=== PATIENT | female | born 1945 | race Caucasian/White ===

== ENCOUNTER 2017-10-25 02:44 | Inpatient (IN) | payer OTHER, MEDICARE ==
[~2017-10-25] VITALS: Ht 157.5 cm; Wt 66.9 kg
[~2017-10-25 02:44] MED LIST: ASPIRIN EC81 M1 PO; CRANBERRY-PROB1 EACH PO; FISH OIL 11600 MG/5 PO; LEVOTHYROXINE75 MCG PO; LIPITOR10 M1 PO; LOTREL 5-20 MG1 EACH PO; MULTIVITAMINS1 EAC9 PO; VITAMIN C1000 M4 PO; VITAMIN D5000 UNIT PO
--- NOTE | 2017-10-25 11:12 | Admission Core Measures ---
Acute Coronary Syndrome (CM) ACS Core Measures Acute Coronary Syndrome Diagnosis No Congestive Heart Failure (NEW) CHF Core Measures Congestive Heart Failure Diagnosis No Cerebrovascular Accident (NEW) CVA Core Measures CVA/TIA Diagnosis No Venous Thromboembolism VTE Core Mt (View Protocol) VTE Risk Factors Surgery No Mechanical VTE Prophylaxis d/t N/A MechProphylax Ordered No VTE Pharm Prophylaxis d/t NA PharmProphylax ordered Problem List As ranked by this Provider includes Assessment & Plan 1. Unilateral primary osteoarthritis, right hip HOME MEDS Home Med List Amlodipine Besylate/Benazepril (Lotrel 5-20 MG Capsule) 5 MG-20 MG CAPSULE 1 CAP PO DAILY BP (Reported) Ascorbic Acid (Vitamin C) 1,000 MG TABLET 1 TAB PO DAILY SUPPLEMENT (Reported ) Aspirin (Ecotrin*) 81 MG TABLET.DR 1 TAB PO DAILY HEART/BLOOD (Reported) Atorvastatin Calcium (Lipitor) 10 MG TABLET 1 TAB PO DAILY CHOLESTEROL ( Reported) Cholecalciferol (Vitamin D3) (Vitamin D) 5,000 UNIT TABLET 1 TAB PO DAILY SUPPLEMENT (Reported) Cranberry Con&Fr/B.coag/C/Calc (Cranberry-Probiotic Tablet) (Unknown Strength) TABLET (Unknown Dose) PO DAILY SUPPLEMENT (Reported) Levothyroxine Sodium 75 MCG TABLET 1 TAB PO DAILY AC HASHIMOTOS (Reported) Multiple Vitamin (Multivitamins) 1 EACH TABLET 1 TAB PO DAILY SUPPLEMENT ( Reported) [place]-3/Dha/Epa/Fish Oil (Fish Oil 1,600 MG/5 Ml Liquid) (Unknown Strength) LIQUID (Unknown Dose) PO DAILY SUPPLEMENT (Reported)
[2017-10-25] MEDS ORDERED: DILAUDID2 M1 PO (11:14)
[2017-10-25] MEDS ORDERED: MIRALAX17 G1 PO (11:14)
[2017-10-25] MEDS ORDERED: COLACE100 M1 PO (11:14)
[2017-10-25] MEDS ORDERED: PRILOSEC OTC20 M1 PO (11:14)
[2017-10-25] MEDS ORDERED: ASPIRIN EC325 M2 PO (11:14)
--- NOTE | 2017-10-25 11:18 | Patient Discharge Instructions ---
Discharge Instructions General Discharge Information You were seen/treated for: Right hip pain related to unilateral primary osteoarthritis You had these procedures: Right total hip replacement Watch for these problems: Increasing pain despite the use of pain medication Increasing redness, warmth or swelling Drainage of any type from incision Inability to bear weight on operative leg Persistent nausea and vomiting Fever greater than 101.5 degrees Do not soak the wound: Yes No bath, but you may shower: Yes Other wound care: Please keep wound clean and dry. No ointments or lotions of any type on or near incision at any time. No exceptions. Your dressing will be changed by your nurse on the second day after your surgery. Daily dry dressing changes are recommended each day thereafter. Do not soak your wound in a bath at any time until otherwise indicated by your surgeon. You may shower, please dry wound immediately after shower with a clean towel. Special Instructions: Aspirin: You are taking this medication to help prevent blood clot formation. Please take with food to protect your stomach lining. Please take as directed. Constipation: Pain medication can cause constipation. Dr. Turpin has recommended that you take Colace and miralax each day. You may discontinue this medication if you develop loose stool or diarrhea. If you wish to continue this medication, it is available over the counter. If you are unable to move your bowels after several days, if you are unable to pass gas and are developing bloating, nausea, or vomiting as a result, please contact your doctor. Diet Continue normal diet: Yes Recommended Diet: Regular Activity Full Activity/No Limits: No Activity Self Limited: Yes Pounds, do NOT lift more than: 10 Acute Coronary Syndrome Inclusion Criteria At DC or during hospital stay patient has or had the following: ACS DIAGNOSIS No Discharge Core Measures Meds if any: Prescribed or Continued at Discharge Meds if any: NOT Prescribed or Continued at Discharge Congestive Heart Failure Inclusion Criteria At DC or during hospital stay patient has or had the following: CHF DIAGNOSIS No Discharge Core Measures Meds if any: Prescribed or Continued at Discharge Meds if any: NOT Prescribed or Continued at Discharge Cerebrovascular accident Inclusion Criteria At DC or during hospital stay patient has or had the following: CVA/TIA Diagnosis No Discharge Core Measures Meds if any: Prescribed or Continued at Discharge Meds if any: NOT Prescribed or Continued at Discharge Venous thromboembolism Inclusion Criteria VTE Diagnosis No VTE Type NONE VTE Confirmed by (Test) NONE Discharge Core Measures - Per Current guidelines, there needs to be overlap - treatment for the first 5 days of Warfarin therapy. - If discharged on Warfarin prior to 5 days of - overlap therapy, the patient will need to be - assessed for post discharge needs including - *Post discharge parental anticoagulation - *Warfarin and/or parental anticoagulation education - *Follow up date to check INR post discharge At least 5 days overlap therapy as Inpatient No Meds if any: Prescribed or Continued at Discharge Note: Overlap Therapy is Warfarin and Anticoagulant Meds if any: NOT Prescribed or Continued at Discharge
--- NOTE | 2017-10-25 11:20 | Surgical Discharge Summary ---
Visit Information Visit Dates Admission Date: 10/25/17 Discharge Date: 10/26/17 History of Present Illness Chief Complaint: Right hip unilateral primary osteoarthritis Surgical History Pertinent Surgical History: non-contributory Review of Systems: See H&P Hospital Course Course Attending Physician: Jose J Turpin MD Primary Care Physician: Chandler OROZCO,[facility] Course: Patient was admitted to the hospital for an elective total joint replacement. The procedure was tolerated well and patient was transferred to a general surgical floor. Diet was advanced and tolerated, and the patient voided spontaneously. The patient was evaluated and treated by physical therapy. At the time of hospital discharge, the vital signs were stable, neurovascular status was intact, and pain was controlled with the use of oral pain medications. Allergies: Coded Allergies: Penicillins ([facility] 10/21/17) Sulfa (Sulfonamide Antibiotics) ([facility] 10/21/17) adhesive tape (PAIN AND BURNING FROM TAPE UNK KIND - BAND AIDES ARE OKAY ) codeine ([facility] 10/21/17) latex (DRYNESS AND BURNING ORALLY WHEN GLOVES USED IN DENTAL WORK 10/21/17) meloxicam (GASTRITIS 10/21/17) shellfish derived ([facility] 10/21/17) Disposition Summary Disposition Principal Diagnosis: Unilateral primary osteaorthritis right hip Additional Diagnosis: None Discharge Disposition: home health services Discharge Instructions General Discharge Information Code Status: Full Code Patient's Diet: Regular, advance as tolerated Patient's Activity: WBAT Follow-Up Instructions/Appts: Follow up with Dr. Turpin in 6 weeks from date of surgery. Please call his office to arrange and/or confirm this appointment. Medications at Discharge Discharge Medications: Stop taking the following medications: Aspirin (Ecotrin*) 81 MG TABLET. ORAL DAILY Continue taking these medications: Levothyroxine Sodium (Levothyroxine Sodium) 75 MCG TABLET 1 Tablet ORAL DAILY BEFORE BREAKFAST Comments: Last Taken: 10/26/17 Time: 530 AM Amlodipine Besylate/Benazepril (Lotrel 5-20 MG Capsule) 5 MG-20 MG CAPSULE 1 Capsule ORAL DAILY Comments: Last Taken: 10/26/17 Time: 845 AM Atorvastatin Calcium (Lipitor) 10 MG TABLET 1 Tablet ORAL DAILY Comments: Last Taken: 10/25/17 Time: 445 PM Multiple Vitamin (Multivitamins) 1 EACH TABLET 1 Tablet ORAL DAILY Comments: Last Taken: 10/26/17 Time: 845 AM Cholecalciferol (Vitamin D3) (Vitamin D) 5,000 UNIT TABLET 1 Tablet ORAL DAILY Comments: NOT GIVEN IN THE HOSPITAL Ascorbic Acid (Vitamin C) 1,000 MG TABLET 1 Tablet ORAL DAILY Comments: NOT GIVEN IN THE HOSPITAL Cranberry Con&Fr/B.coag/C/Calc (Cranberry-Probiotic Tablet) (Unknown Strength) TABLET Unknown Dose ORAL DAILY Comments: NOT GIVEN IN THE HOSPITAL [place]-3/Dha/Epa/Fish Oil (Fish Oil 1,600 MG/5 Ml Liquid) (Unknown Strength) LIQUID Unknown Dose ORAL DAILY Comments: NOT GIVEN IN THE HOSPITAL Start taking the following new medications: Hydromorphone HCl (Dilaudid) 2 MG TABLET 1-2 Tablet ORAL EVERY 4-6 HOURS NEEDED as needed for PAIN Qty = 36 No Refills Comments: NOT GIVEN IN THE HOSPITAL Aspirin (Ecotrin*) 325 MG TABLET.DR 1 Tablet ORAL TWICE DAILY Qty = 60 No Refills Comments: Last Taken: 10/26/17 Time: 845 AM Docusate Sodium (Colace) 100 MG CAPSULE 1 Capsule ORAL TWICE DAILY Qty = 14 No Refills Instructions: DISCONTINUE USE IF YOU DEVELOP LOOSE STOOL OR DIARRHEA Comments: Last Taken: 10/26/17 Time: 845 AM Polyethylene Glycol 3350 (Miralax) 17 GRAM POWD.PACK 1 Packet ORAL DAILY Qty = 7 No Refills Instructions: dissolve in water, DISCONTINUE USE IF YOU DEVELOP LOOSE STOOL OR DIARRHEA Comments: Last Taken: 10/26/17 Time: 845 AM Omeprazole Magnesium (Prilosec Otc) 20 MG TABLET.DR 1 Tablet ORAL DAILY Qty = 30 No Refills Comments: Last Taken: 10/26/17 Time: 530 AM
--- NOTE | 2017-10-25 13:52 | RADIOLOGY REPORT ---
EXAMINATION: XR HIP, RIGHT CLINICAL INFORMATION: Follow-up hip arthroplasty. COMPARISON: None TECHNIQUE: Two views of the right hip. FINDINGS: Status post right hip arthroplasty. Recent postoperative changes with air in the soft tissues is noted. Prosthesis is well seated. Intact hardware. No evidence of periprosthetic abnormal lucency. IMPRESSION: Recent postoperative changes. No acute osseous abnormality.
--- NOTE | 2017-10-25 14:50 | PN- Orthopedic ---
Subjective Subjective: Post op check; patient feels well presently. No complaints of chest pain, shortness of breath and difficulty breathing. No complaints of nausea or vomitting. Has hx of vertigo and is feeling somewhat symptomatic. Objective Vital Signs and I&Os See EMR Physical Exam: General: Alert and oriented x3, no acute distress Cardiac: RRR s1s2 Pulm: C T A bilateraly ABD: non-tender, non-distended Extremities: Moves all extremities, distal sensation intact. Skin warm and well perfused. DP pulses palpable bilaterally. Bilateral calves soft and non- tender. Dressing dry and inatact to R hip. Thigh compartment soft. Assessment/Plan Assessment/Plan This is a 72 year old female, POD 0, s/p R THR. PMH hld, htn, vertigo -Continue home meds -Add prn valium for vertigo -OOB, wbat -Ancef and vanc x24 hours ppx -Diet as tolerated -PPI, hx of gastritis -ASA 325 bid for dvt ppx -Anticipate dc to home with hhs tomorrow Core Measures Venous Thromboembolism VTE Risk Factors Surgery No Mechanical VTE Prophylaxis d/t N/A MechProphylax Ordered No VTE Pharm Prophylaxis d/t NA PharmProphylax ordered
--- NOTE | 2017-10-25 14:57 | Operative Report ---
Operative/Inv Procedure Report Surgery Date: 10/25/17 Name of Procedure: Right total hip replacement Pre-Operative Diagnosis: Primary right hip DJD Post-Operative Diagnosis: Same Estimated Blood Loss: 250 Surgeon/Food And Nutrition Professor: Dyana OROZCO,Jose J Roach Anesthesia: block Operative/Procedure Note Note: Description of Procedure: The patient was taken to the operating room and positively identified. After induction of spinal anesthesia and administration of appropriate pre-operative antibiotics, the patient was positioned supine on the operating room table and all bony prominences were well padded. After performing a surgical timeout, the right lower extremity was prepped and draped in the usual sterile fashion. A direct anterior approach was made to the right hip. The incision was carried sharply through superficial soft tissues to the level of the fascia. Meticulous hemostasis was maintained with Bovie electocautery. The fascia over the tensor fascia hugo muscle was opened sharply and the interval between the TFL and the sartorius was entered bluntly taking care to stay lateral to the lateral femoral cutaneous nerve. Retractors were placed around the femoral neck and the pericapsular fat was identified. The ascending branches of the lateral femoral circumflex vessels were identified and carefully coagulated. The pericapsular fat and anterior capsule were then resected. A napkin ring osteotomy was performed and the femoral head was removed without difficulty. Attention was then turned to the acetabulum. After appropriate placement of retractors, the acetabulum was exposed. Soft tissue was cleaned from the acetabular margin and notch. Overhanging osteophytes were removed and the teardrop was exposed. The acetabulum was then sequentially reamed to accept a 50 mm Raphael Tritanium hemispherical solid shell. This was impacted into place in the appropriate position and fitted with a 32 mm Trident X3 zero degree polyethylene insert. Attention was then turned to the femur. After performing the appropriate ligament releases, the proximal femur was exposed. It was then sequentially broached to accept a size 3 Raphael Accolade II stem. This was trialed for leg length and stability. The trial component was removed and the final component was impacted into place. The trunnion was carefully cleaned and fit with a 32 mm, +0 Biolox delta ceramic femoral head. The hip was reduced and put through a full range of motion and found to be stable. The articular space was then irrigated with sterile saline. The periarticular soft tissues were infilitrated with Marcaine. The fascial layer was closed with interrupted #1 vicryl suture and the skin was re-approximated with interrupted 2 -0 vicryl. The skin was closed with a running 3-0 V-Lock suture. Steri-strips and a sterile dressing were applied. The patient was awakened and taken to the recovery room in satisfactory condition.
[2017-10-25 16:34] VITALS: BP 115/72
[2017-10-25 18:30] VITALS: BP 98/59
[2017-10-25 20:30] VITALS: BP 100/59
[2017-10-26 00:26] VITALS: BP 110/68
[2017-10-26 04:00] VITALS: BP 110/66
--- NOTE | 2017-10-26 07:32 | PN- Orthopedic ---
Subjective Subjective: Mild complaints of soreness, right hip, no other complaints. Pain is well controlled. No fever no flulike illness no nausea no vomiting. Vertigo improved. Voiding without difficulty Objective Vital Signs and I&Os Vital Signs Date Time Temp Pulse Resp B/P B/P Pulse O2 O2 Flow FiO2 Mean Ox Delivery Rate 10/26 0400 97.7 65 20 110/66 96 Room Air 10/26 0026 97.8 83 20 110/68 97 Room Air 10/25 2030 98.2 69 20 100/59 96 Room Air 10/25 1830 98.2 79 20 98/59 96 Room Air 10/25 1634 97.4 72 20 115/72 99 Room Air Intake & Output 10/26 0800 10/26 0000 / 1600 10/25 0800 10/25 0000 10/24 1600 Intake Total 1130 Output Total 1350 1300 250 Balance -1350 -170 -250 Intake, IV 650 Intake, Oral 480 Output, Urine 1350 1300 250 Patient 147 lb Weight Physical Exam: Well-developed well-nourished no apparent distress. HEENT: Atraumatic, extraocular motion intact Neck: Supple, no lymphadenopathy Respiratory: No respiratory distress Extremities: No edema RIGHT lower extremity hip dressing in place, Dressing clean dry and intact Mild thigh swelling No signs of infection. No shortening or rotation Hip range of motion is limited and without unexpected pain Neurovascularly intact distally Bilateral calves are supple, nontender. Neuro: Alert and oriented x3 Psych: Mood affect normal, normal memory normal judgment. Skin: Warm and dry, no rash on exposed skin Assessment/Plan Assessment/Plan Postop day #1 status post right total hip arthroplasty anterior approach. Perioperative antibiotics. Pain medication as needed. Out of bed Physical therapy, weightbearing as tolerated DC IV fluids Regular diet Follow a.m. labs Aspirin for DVT prophylaxis ALPS for DVT prophylaxis Regular home meds Dressing change postop day 2 Plan for discharge home today if clears physical therapy and labs acceptable Core Measures Venous Thromboembolism VTE Risk Factors Surgery No Mechanical VTE Prophylaxis d/t N/A MechProphylax Ordered No VTE Pharm Prophylaxis d/t NA PharmProphylax ordered
[2017-10-26 08:47] VITALS: BP 110/66
[2017-10-26 09:04] LABS: ABSOLUTE BASOPHIL COUNT 0 /CUMM (0.0-0.2); ABSOLUTE EOSINOPHIL COUNT 0 /CUMM (0.0-0.7); ABSOLUTE GRANULOCYTE CT 11.8 /CUMM (1.4-6.5); ABSOLUTE LYMPH COUNT 2.1 /CUMM (1.2-3.4); ABSOLUTE MONOCYTE COUNT 0.4 /CUMM (0.10-0.60); BASOPHIL % 0.3 % (0.0-2.0); EOSINOPHIL % 0.2 % (0-5); MEAN CORPUSCULAR HGB 31.4 PG (27.0-31.0); MEAN CORPUSCULAR HGB CONC 33.6 G/DL (33.0-37.0); MEAN CORPUSCULAR VOLUME 93.4 FL (81.0-99.0); MEAN PLATELET VOLUME 10.4 FL (7.4-10.4); PLATELET COUNT 183 /CUMM (130-400); RBC DISTRIBUTION WIDTH 13.4 % (11.5-14.5); RED BLOOD CELL CT 3.96 /CUMM (4.20-5.40); WHITE BLOOD CELL COUNT 14.4 /CUMM (4.8-10.8)
== END 2017-10-26 11:55 | disposition home health service (06) | DRG 470 ==
LOC: 2NA 02:44 → SDA 02:44 → ENRESERV 12:41 → ENTRNSPT 13:42 → EDTRNSPT 13:48 → EDTRNSPTSTS 13:48 → 2NA 14:09 → CMPTRNSPT 14:26 → ENPENDDIS 10-26 09:23 → 2NA 10-26 11:55
PROVIDERS: Nurse Practitioner
PROC: 0SR904Z Replacement of Right Hip Joint with Ceramic on Polyethylene Synthetic Substitute, Open Approach (ICD-10-PCS; principal; 2017-10-25)
DX: M16.11 Unilateral primary osteoarthritis, right hip (principal); I35.1 Nonrheumatic aortic (valve) insufficiency; E06.3 Autoimmune thyroiditis; Z79.82 Long term (current) use of aspirin; Z91.040 Latex allergy status; Z88.5 Allergy status to narcotic agent; Z88.0 Allergy status to penicillin; Z88.2 Allergy status to sulfonamides; Z88.8 Allergy status to other drugs, medicaments and biological substances; Z91.048 Other nonmedicinal substance allergy status; H40.9 Unspecified glaucoma; I10 Essential (primary) hypertension; E78.5 Hyperlipidemia, unspecified; M47.9 Spondylosis, unspecified; G43.909 Migraine, unspecified, not intractable, without status migrainosus; K57.90 Diverticulosis of intestine, part unspecified, without perforation or abscess without bleeding; M60.9 Myositis, unspecified; Z86.73 Personal history of transient ischemic attack (TIA), and cerebral infarction without residual deficits; Z87.891 Personal history of nicotine dependence; H81.10 Benign paroxysmal vertigo, unspecified ear
CPT/HCPCS: 2NAP; 36415; 73502-RT; 82436; 97110-GO; 97116-GO; 97161-GP; 97530-GO; J0131; J0690; J0735; J2550; J3370; J3490; J7042; J7060